=== PATIENT | female | born 1975 | race Two or more races ===

== ENCOUNTER 2016-04-26 15:42 | Emergency (ER) | payer MEDICAID ==
[~2016-04-26] VITALS: Ht 162.6 cm; Wt 65.8 kg
[2016-04-26 16:19] LABS: Basophils # (auto) 0 uL; Basophils % (auto) 0.5 % (0.0-2.0); Eosinophils # (auto) 0 uL; Eosinophils % (auto) 0.4 % (0.0-7.0); Hematocrit 41.3 % (36.0-46.0); Hemoglobin 13.5 g/dL (12.2-16.2); Lymphocytes # (auto) 1.8 uL; Lymphocytes % (auto) 27.6 % (10.0-50.0); Mean Corpuscular Hemoglobin 27.7 pg (28.0-32.0); Mean Corpuscular Hgb Conc. 32.7 g/dL (32.0-36.0); Mean Corpuscular Volume 84.8 fL (80.0-100.0); Mean Platelet Volume 10.5 fL (7.4-10.4); Monocytes # (auto) 0.7 uL; Monocytes % (auto) 10.5 % (0.0-12.0); Neutrophils # (auto) 3.9 uL; Platelet Count (auto) 241 10^3/uL (140-450); Red Cell Distribution Width 13.8 % (11.6-16.0); White Blood Cell 6.4 10^3/uL (4.4-10.8)
[2016-04-26 16:33] LABS: Urine Bilirubin Negative (Negative); Urine Color Yellow (Yellow); Urine Glucose Normal (Normal); Urine Ketone Negative (Negative); Urine Nitrite Negative (Negative); Urine RBC 1 /hpf (0 - 4); Urine Squamous Epithelial Cell FEW /hpf (<5); Urine Urobilinogen Normal (Negative)
[2016-04-26 16:35] LABS: Urine Blood 1+ /uL (Negative)
[2016-04-26 16:42] LABS: Albumin 3.8 g/dL (3.4-5.0); BUN/Creatinine Ratio 24.6; Bilirubin, Total 0.3 mg/dL (0.2-1.0); Calcium 8.8 mg/dL (8.5-10.1); Potassium 3.4 mmol/L (3.5-5.1); Total Protein 7.7 g/dL (6.4-8.2)
[2016-04-26] MEDS ORDERED: ONDANSETRON HCL 4 MG/2 ML VIAL IV ONE (17:00)
[2016-04-26] MEDS ORDERED: HYDROmorphone HCL 2 MG/ML VL IV ONE (17:00)
[2016-04-26] MEDS ORDERED: SODIUM CHLORIDE 0.9% 500 ML IVB ONE (17:00)
[2016-04-26] MEDS ORDERED: KETOROLAC TROMETH 30 MG/ML 1ML VIAL IV ONE (17:00)
[2016-04-26 17:51] LABS: INR 1.03 (0.9-1.15); Partial Thromboplastin Time 27.8 sec (22.64-33.71); Prothrombin Time 10.6 sec (9.37-12.3)
[2016-04-26] MEDS ORDERED: LORazepam 2MG/ML-1ML VIAL IV ONE ×3 (18:45→19:00)
[2016-04-26 20:23] VITALS: BP 127/73
== END 2016-04-26 20:45 | disposition home or self-care (01) ==
LOC: ER 15:47
DX: R10.30 Lower abdominal pain, unspecified (principal); G89.29 Other chronic pain; M54.5 Low back pain; Z88.0 Allergy status to penicillin; Z90.49 Acquired absence of other specified parts of digestive tract
CPT/HCPCS: 36415; 74176; 80053; 81001; 81025; 82150; 83690; 83735; 85025; 85610; 85730; 93005; 94761; 96361; 96374; 96375; 99285; J1170; J1885; J2060; J2405; J7030